=== PATIENT | male | born 1960 | race Caucasian/White ===

== ENCOUNTER → 2024-05-15 | Outpatient (CLI) | payer MEDICARE ==
[2024-05-15 14:10] VITALS: BP 150/95; PULSE 66; RESP 16; TEMP 97.9
--- NOTE | 2024-05-15 15:07 | P.SLEEP ---
History of Present Illness DATE: 05/15/2024 CONSULTATION/NEW PATIENT EVALUATION HISTORY OF PRESENT ILLNESS/SLEEP-WAKE EVALUATION: 63-year-old gentleman had been evaluated in the sleep center for possible obstructive sleep apnea hypopnea syndrome. Patient have been diagnosed with obstructive sleep apnea hypopnea syndrome in another institution about 13 years ago. He is on treatment with CPAP, but still wakes up from sleep while using CPAP and CPAP unit is very old. Results of previous sleep studies are not available. SLEEP SCHEDULE: Usually sleep schedule from midnight until 9 AM 7 days a week. FALLING ASLEEP: No problems with falling asleep. DURING SLEEP: Patient wakes up from sleep 2 times with nocturia. Positive history of snoring. No history of hypnogogical hallucinations, sleep paralysis, or cataplexy. DURING THE DAY/WAKE STATE: In the morning patient wake up tired. Bureau sleepiness scale is 5. Usually patient does not take naps. PAST MEDICAL HISTORY: Atrial fibrillation, depression. PAST SURGICAL HISTORY: Cardiac ablation for atrial fibrillation, cervical fusion. MEDICATIONS: Have been reviewed, please see below. SOCIAL HISTORY: Please see below. FAMILY HISTORY: Please see below. REVIEW OF SYSTEMS: Snoring, awakenings from sleep. No fevers. No double vision. No recent chest pain. No shortness of breath. No abdominal pain. No bleeding episodes. No blood in urine. No seizure episodes. PHYSICAL EXAMINATION: GENERAL: A pleasant patient without any distress. VITAL SIGNS: Please see below, weight 230 pounds, BMI 32.0. HEENT: PERRLA, EOMI. Evaluation of oropharynx showed tongue protrudes midline, low position of soft palate Mallampati 34. NECK: Supple. No JVD. Thyroid is not palpable. 17 inches in circumference. LUNGS: Clear to percussion and to auscultation. Good air exchange. No wheezing or rhonchi. HEART: S1, S2 regular. No murmurs, gallops or rubs. ABDOMEN: Soft and nontender. Bowel sounds are present. No organomegaly appreciated. EXTREMITIES: No clubbing or cyanosis. FISHER EEL SPEAR: Awake, alert, and oriented x3. Cranial nerves 2 to 7 intact. There is no fasciculation or atrophy noted. No focal deficits observed. ASSESSMENT: 1. Snoring, awakenings from sleep, low position of soft palate Mallampati 34, wide neck 17 inches in circumference, history of obstructive sleep apnea diagnosed 13 years ago in another institution. Obstructive sleep apnea hypopnea syndrome. 2. Obesity. 3. Atrial fibrillation, status post cardiac ablation. 4. Depression. 5 nasal septum deviation with restriction of nasal breathing on the left side. 6 . Status post cervical fusion. PLAN: 1. Polysomnography for evaluation of patient's breathing during sleep. 2. Following plan after reading sleep study. 3. Preferable position during sleep on the side. 4. No driving if patient feels any sleepiness. Patient is aware of civil and criminal liability for unsafe driving. 5. Sleep hygiene with regular sleep time for at least 7.5-8 hours. 6. Watching and losing weight. Thank you very much for referring this patient for consultation. Sincerely, Landry Thompson MD, PhD, FAASM. Diplomat of [place] [employer], Sleep Medicine Board by [place] [employer] [place] [employer] Manufacturing Maintenance Technician of [facility] [place] Past Medical History Past Medical History: Atrial Fibrillation, Diabetes Mellitus, Deep Vein Thrombosis (DVT), Hyperlipidemia, Hypertension History of Any Multi-Drug Resistant Organisms: None Reported Past Surgical History: Orthopedic Surgery Additional Past Surgical History / Comment(s): heart ablations Past Anesthesia/Blood Transfusion Reactions: No Reported Reaction Past Psychological History: Depression Smoking Status: Current every day smoker Past Alcohol Use History: Occasional Additional Past Alcohol Use History / Comment(s): 3 OR 4 TIMES A WEEK Past Drug Use History: Marijuana - Past Family History Mother Family Medical History: Coronary Artery Disease (CAD) Additional Family Medical History / Comment(s): ARTHRITIS UNKNOWN TYPE Father Family Medical History: COPD, Hyperlipidemia Brother(s) Family Medical History: Cancer Sister(s) Family Medical History: Cancer Medications and Allergies Home Medications Medication Instructions Recorded Confirmed Type Atorvastatin [Lipitor] 20 mg PO DAILY 05/15/24 05/15/24 History Digoxin 250 mcg PO DAILY 05/15/24 05/15/24 History Diltiazem Cd [Cardizem CD] 180 mg PO DAILY 05/15/24 05/15/24 History Metoprolol Tartrate [Lopressor] 100 mg PO BID 05/15/24 05/15/24 History Rivaroxaban [Xarelto] 20 mg PO DAILY 05/15/24 05/15/24 History buPROPion HCL [buPROPion HCL SR] 150 mg PO DAILY 05/15/24 05/15/24 History methocarbamoL 500 mg PO DIRECTED PRN 05/15/24 05/15/24 History Allergies Allergy/AdvReac Type Severity Reaction Status Date / Time No Known Allergies Allergy Verified 01/31/23 17:01 Physical Exam Vitals: Vital Signs Temp Pulse Resp BP Pulse Ox 05/15/24 14:09 97.9 F 66 16 150/95 96 Intake and Output 05/14/24 05/15/24 05/15/24 22:59 06:59 14:59 Other: Weight 104.326 kg Sleep Note - Sleep Data ESS Total: 5 - Sleep Note Sleep Note: Temperature: 97.9 F Pulse Rate: 66 Respiratory Rate: 16 Blood Pressure: 150/95 SpO2: 96 Height: 5 ft 11 in Weight: 104.326 kg BMI: Neck Circumference: 17
== END ==
LOC: 3 N SLEEP 13:54
PROVIDERS: ATTEND Internal Medicine
DX: G47.33 Obstructive sleep apnea (adult) (pediatric) (principal); E66.9 Obesity, unspecified; I48.91 Unspecified atrial fibrillation; J34.2 Deviated nasal septum; F32.A Depression, unspecified; Z86.79 Personal history of other diseases of the circulatory system; Z98.1 Arthrodesis status
CPT/HCPCS: 99211

== ENCOUNTER 2024-08-12 19:34 | Outpatient (CLI) | payer MEDICARE ==
--- NOTE | 2024-08-14 18:10 | P.PCN ---
Description of Procedure: CLINICAL: Titration with positive air pressure has been done for correction of respiratory abnormalities during sleep. DESCRIPTION OF PROCEDURE: The standard montage for clinical polysomnography included the electroencephalogram, the electrocardiogram, the mentalis surface electromyography and Lead II cardiography. The respiratory battery consisted of measurements of nasal /buccal air flow, pressure transducer measurements from the nose, thoracic and /or abdominal effort and intercostal surface electromyography. Video monitoring has been done to check for any parasomnia events. Nocturnal oxyhemoglobin saturations were obtained by finger oximetry. Step-hammonds titration with positive airway pressure was utilized to control respiratory events. Raw data of sleep recording has been reviewed and is adequate. RESULTS: Sleep efficiency was decreased to 69.9%. Latency to sleep onset was prolonged to 35.5 minutes.]. Sleep architecture showed stage N1 was increased to 11.8%, Delta sleep was absent 0%, REM sleep was short 16.5%. Heart rate was minimum 52 BPM, maximum 62 BPM, average 7 BPM. EMG showed 19.3 periodic limb movements per hour with 0.5 micriarousals per hour. PAP titration have been done with CPAP up to the pressure 14 cm H2O. The best results were at the pressure 13 cm H2O. Apnea hypopnea index reduced to 1.8. IMPRESSION: 1. Obstructive sleep apnea hypopnea syndrome on controle with PAP treatment. 2. Significant periodic limb movements have been documented. Please see other impressions from consultation. PLAN: 1. The patient will have treatment with positive air pressure equipment with the level of pressure AutoPap 514 cm H2O and should use it every night for the whole night. 2. Watching weight. 3. Sleep hygiene with regular time in bed for at least 8 hours. 4. No driving if feeling any sleepiness. 5. I will see the patient for follow up visit to explain the results of the test, recommendations, check compliance with treatment and make any necessary adjustment related to mask fitting, pressure and humidification. 6. Please check iron profile including ferritin level. Low level of iron may increase risk for periodic limb movements Thank you very much for allowing me to participate in the management of your patient. Sincerely, Landry Thompson MD, PhD, FAASM Diplomat of [place] [employer] Sleep Medicine Board of [place] [employer] Mattress Stripper of [facility] [place] cc: Scott Prado DO
== END 2024-08-13 05:50 | disposition home or self-care (01) ==
LOC: 3 N SLEEP 19:34
PROVIDERS: ATTEND Internal Medicine
DX: G47.33 Obstructive sleep apnea (adult) (pediatric) (principal); G47.61 Periodic limb movement disorder; Z99.89 Dependence on other enabling machines and devices
CPT/HCPCS: 95811

== ENCOUNTER 2024-10-24 11:54 | Day surgery (SDC) | payer MEDICARE ==
[2024-10-23 09:54] VITALS: BMI 31.1
[2024-10-24] MEDS: IV FLUID CONTINUATION 1,000 ML IV ONE ×2 (13:09→14:07)
[2024-10-24 13:16] VITALS: RESP 16; TEMP 98
[2024-10-24] MEDS: LACTATED RINGERS 1,000 ML IV SCH (13:33)
[2024-10-24] MEDS ORDERED: PROPOFOL 10 MG/ML 20 ML VIAL IV ONE (14:08)
[2024-10-24] MEDS ORDERED: LIDOCAINE 2% (PF) 20 MG/ML 5 ML VIAL ONE (14:08)
--- NOTE | 2024-10-24 14:25 | P.PCN ---
Date of Procedure: 10/24/24 Procedure(s) Performed: BRIEF HISTORY: Patient is a 63-year-old pleasant white male scheduled for an elective colonoscopy as a part of screening for prior history of colon polyps. Last colonoscopy was at [facility] informed patient he had 10 polyps. PROCEDURE PERFORMED: Colonoscopy with biopsy and snare polypectomy. PREOPERATIVE DIAGNOSIS: Screening for history of colon polyps. IV sedation per Anesthesia. PROCEDURE: After informed consent was obtained, the patient, was brought into the endoscopy unit. IV sedation was administered by Anesthesia under continuous monitoring. Digital rectal examination was normal. Initially the Olympus CF-160 flexible video colonoscope was then inserted in the rectum, gradually advanced into the cecum without any difficulty. Careful examination was performed as the scope was gradually being withdrawn. Ileocecal valve and the appendiceal orifice were visualized and appeared normal. Prep was excellent. Mucosa of the cecum, 3 mm polyp that was removed by cold biopsy. In the ascending colon there was a 4 mm polyp removed by cold biopsy. Rest of the ascending colon, transverse colon, appeared normal. The descending colon there were 3 polyps measuring 3 mm, 5 mm and 7 mm all of which were removed by cold snare polypectomy. Rest of the descending colon, sigmoid colon, and rectum appeared normal. Retroflexion was performed in the rectum and no lesions were seen. The patient tolerated the procedure well. IMPRESSION: 3 mm cecal polyp status post cold biopsy 4 mm ascending colon polyp status post cold biopsy 3 mm, 7 mm and 5 mm descending colon polyp status post cold snare polypectomy RECOMMENDATIONS: Findings of this examination were discussed with the patient as well as her family. He was advised to follow-up with the biopsy results. If the biopsy reveals adenoma he can have repeat colonoscopy 3 years..
[2024-10-24 14:52] VITALS: BP 138/53; PULSE 62
== END 2024-10-24 15:01 | disposition home or self-care (01) ==
LOC: ORWHC2ENDO 11:54
PROVIDERS: ATTEND Internal Medicine Gastroenterology
DX: Z12.11 Encounter for screening for malignant neoplasm of colon (principal); D12.0 Benign neoplasm of cecum; D12.2 Benign neoplasm of ascending colon; D12.4 Benign neoplasm of descending colon; Z86.0100 Personal history of colon polyps, unspecified
CPT/HCPCS: 45380; 45385; J2704; J2003; 88305

== ENCOUNTER → 2024-11-27 | Outpatient (CLI) | payer MEDICARE ==
[2024-11-27 16:03] VITALS: BP 129/83; PULSE 68; RESP 16; TEMP 98.5
--- NOTE | 2024-11-27 16:18 | P.PROGSL ---
Subjective DATE: 11/27/2024 FOLLOW UP VISIT. Patient with obstructive sleep apnea hypopnea syndrome return to sleep center for follow-up visit. Recently patient had sleep study which documented obstructive sleep apnea hypopnea syndrome. Patient was initiated on PAP therapy and today is first visit after treatment was started. Patient was able to use PAP equipment every night for the whole night. The patient does not have significant problems with the mask, PAP pressure and humidification. [place] sleepiness scale is 6, which is normal. I checked information from PAP unit. PAP unit pressure 5-14, average 12.1 cm H2O. Usage is 93% for more then 4 hours, average 8.25 hours per night. Leak is 11.7 l/m, which is in acceptable range. Apnea Hypopnea Index is 3.2, which is normal. MEDICATIONS: Please see below During physical exam: GENERAL: A pleasant patient without any distress. VITAL SIGNS: Please see below weight 237 pounds. HEENT: PERRLA, EOMI.low position of soft palate, Mallapati 3-4 . NECK: Supple. No JVD. LUNGS: Clear to percussion and to auscultation. Good air exchange. No wheezing or rhonchi. HEART: S1, S2 irregularly irregular. ABDOMEN: Soft and nontender.[] EXTREMITIES: No clubbing or cyanosis. SERVICE PROMOTER SALESPERSON: Awake, alert, and oriented x3. No focal deficit. Impressions: 1. Obstructive sleep apnea-hypopnea syndrome. Patient demonstrated great compliance with treatment, benefiting from treatment. 2. Mild obesity, patient increased weight on 7 pounds comparing with her weight during consultation. 3. Atrial fibrillation, status post cardiac ablation. 4. Depression. 5. Some restriction of nasal breathing. 6. Status post cervical fusion. Plan: 1. Continue using PAP equipment every night for the whole night. 2. To change air filter at least 1-2 times per month. 3. PAP unit should stay lower then position of the head. 4. Advised patient to remove all remaining water from humidifier canister daily and make it dry after each usage. Refill canister with fresh distilled water before each usage. 5. Sleep hygiene with regular time in bed for at least 8 hours. 6. Precautions related to driving. No driving if feel any sleepiness. 7. I will maintain prescription for PAP supplies including mask, tube, filters. 8. Follow up visit in 8 months or earlier if patient has any problems. 9. Watching and losing weight. Thank you very much for allowing me to participate in the management of your patient. Landry Thompson MD, PhD, FAASM. Diplomat of [place] [employer], Sleep Medicine Board by [place] [employer] Science Intern of [facility] [place] Objective - Vital Signs Vital Signs: Vital Signs Temp 98.5 F 11/27/24 16:02 Pulse 68 11/27/24 16:02 Resp 16 11/27/24 16:02 BP 129/83 11/27/24 16:02 Pulse Ox 97 11/27/24 16:02 FiO2 Home Medications: Home Medications Medication Instructions Recorded Confirmed Type Atorvastatin [Lipitor] 20 mg PO DAILY 05/15/24 10/24/24 History Digoxin 250 mcg PO DAILY 05/15/24 10/24/24 History Diltiazem Cd [Cardizem CD] 180 mg PO DAILY 05/15/24 10/24/24 History Metoprolol Tartrate [Lopressor] 100 mg PO BID 05/15/24 10/24/24 History Rivaroxaban [Xarelto] 20 mg PO DAILY 05/15/24 10/24/24 History buPROPion HCL [buPROPion HCL SR] 150 mg PO DAILY 05/15/24 10/24/24 History
== END ==
LOC: 3 N SLEEP 15:44
PROVIDERS: ATTEND Internal Medicine
DX: G47.33 Obstructive sleep apnea (adult) (pediatric) (principal); E66.9 Obesity, unspecified; I48.91 Unspecified atrial fibrillation; F32.9 Major depressive disorder, single episode, unspecified; F12.90 Cannabis use, unspecified, uncomplicated; R09.81 Nasal congestion; Z98.890 Other specified postprocedural states; Z99.89 Dependence on other enabling machines and devices; Z88.8 Allergy status to other drugs, medicaments and biological substances
CPT/HCPCS: 99212